=== PATIENT | male | born 2005 | race Asian ===

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

== ENCOUNTER 2024-11-20 17:54 | Emergency (ER) | payer SELFPAY ==
[2024-11-20 19:06] LABS: APPEARANCE,URINE CLEAR (CLEAR); BILIRUBIN,URINE NEGATIVE (NEGATIVE); COLOR,URINE YELLOW (YELLOW); GLUCOSE,URINE NEGATIVE (NEGATIVE); KETONES,URINE NEGATIVE (NEGATIVE); LEUKOCYTE ESTERASE,URINE NEGATIVE (NEGATIVE); NITRITE,URINE NEGATIVE (NEGATIVE); OCCULT BLOOD,URINE NEGATIVE (NEGATIVE); PROTEIN,URINE NEGATIVE (NEGATIVE); UROBILINOGEN,URINE 0.2 mg/dL (0.2-1.0)
== END 2024-11-20 20:54 | disposition home or self-care (01) ==
LOC: DL.ED 17:54
DX: R30.0 Dysuria (principal); F17.210 Nicotine dependence, cigarettes, uncomplicated
CPT/HCPCS: 81003; 87491; 87563; 87591; 99283; 99284

== ENCOUNTER 2024-12-04 21:00 | Emergency (ER) | payer SELFPAY ==
[2024-12-04] MEDS: Take Home: Doxycycline 100 MG Cap, 4 Cap Pack PO ONE (21:58)
[2024-12-04] MEDS: cefTRIAXone 500 MG Vial IM ONE (21:58)
== END 2024-12-04 22:27 | disposition home or self-care (01) ==
LOC: DL.ED 21:00
DX: Z72.51 High risk heterosexual behavior (principal)
CPT/HCPCS: 36415; 86592; 87070; 87389; 96372; 99283; A9270; J0696; 99282